=== PATIENT | male | born 1955 | race African-American/Black ===

== ENCOUNTER 2024-02-07 13:16 | Emergency (ER) | payer MEDICARE ==
[~2024-02-07] VITALS: Ht 185.4 cm; Wt 97.0 kg
[2024-02-07 13:24] VITALS: BP 142/97; TEMP 98.4; O2SAT 100
[2024-02-07 13:25] VITALS: PULSE 100; RESP 16; O2SAT 97
[2024-02-07] MEDS ORDERED: KETOROLAC 30MG/ML VIAL IM ONE (14:00)
[2024-02-07] MEDS: KETOROLAC 30MG/ML VIAL IM NR (18:15)
[2024-02-07] MEDS ORDERED: CYCL5TAB3 MT (18:43)
[2024-02-07] MEDS ORDERED: ACET-2708 MT (18:43)
== END 2024-02-07 19:18 | disposition home or self-care (01) ==
LOC: ER 13:16
DX: M54.31 Sciatica, right side (principal)
CPT/HCPCS: 99283; 73502; 96372; J1885